=== PATIENT | female | born 1985 | race African-American/Black ===

== ENCOUNTER 2016-08-16 19:25 | Observation (INO) | payer MEDICAID, MEDICARE ==
[~2016-08-16] VITALS: Ht 157.5 cm; Wt 90.7 kg
[~2016-08-16 19:25] MED LIST: ALBUTEROL0.09 MG/A1 IH; FOLATE1 MG PO; OMEGA-3 FISH1200 MG PO; PRENATAL VITAMI1 T10 PO
[2016-08-16] MEDS ORDERED: cefTRIAXone 1,000 MG in LIDOCAINE 1% ED 2.1 ML IM SCH (21:25)
[2016-08-16] MEDS ORDERED: LIDOCAINE 1% 500 MG/50 ML VIAL INJ SCH (21:25)
[2016-08-16] MEDS ORDERED: cefTRIAXone 1,000 MG VIAL ONE (21:40)
[2016-08-16] MEDS ORDERED: LIDOCAINE 1% 50 ML ONE (21:41)
[2016-08-16] MEDS ORDERED: PRENATAL CAPLE1 EACH PO (23:00)
== END 2016-08-17 00:30 | disposition home or self-care (01) ==
LOC: MLD 19:25
PROVIDERS: ADMIT Obstetrics & Gynecology; ATTEND Obstetrics & Gynecology
DX: O36.8120 Decreased fetal movements, second trimester, not applicable or unspecified (principal); O26.892 Other specified pregnancy related conditions, second trimester; N89.8 Other specified noninflammatory disorders of vagina; R10.2 Pelvic and perineal pain; Z3A.23 23 weeks gestation of pregnancy
CPT/HCPCS: 76805; 81000; 96372; G0378; J0696; J2001

== ENCOUNTER 2019-03-06 22:57 | Emergency (ER) | payer MEDICAID ==
[~2019-03-06] VITALS: Ht 172.7 cm; Wt 93.0 kg
[~2019-03-06 22:57] MED LIST changes: +ALBU0.0939 IH; -ALBUTEROL0.09 MG/A1 IH; -FOLATE1 MG PO; -OMEGA-3 FISH1200 MG PO; +PREN-385 PO; -PRENATAL VITAMI1 T10 PO
[2019-03-06 23:07] VITALS: BP 141/83
--- NOTE | 2019-03-06 23:08 | NUR ---
TRIAGE COMPLETE. VSS. OKAY TO WAIT IN LOBBY FOR BED IN ED.
--- NOTE | 2019-03-07 00:24 | NUR ---
PATIENT LEFT WITHOUT BEING SEEN BY DR. FIGUEROA. PT CALLED X3. NO FURTHER CARE PROVIDED FOR PATIENT.
== END 2019-03-07 00:24 | disposition left against medical advice (07) ==
LOC: MED 22:57
DX: N89.8 Other specified noninflammatory disorders of vagina (principal); R10.2 Pelvic and perineal pain; Z53.21 Procedure and treatment not carried out due to patient leaving prior to being seen by health care provider

== ENCOUNTER 2019-03-07 04:50 | Emergency (ER) | payer MEDICAID ==
[~2019-03-07] VITALS: Ht 172.7 cm; Wt 95.3 kg
[2019-03-07 04:54] VITALS: BP 107/53
[2019-03-07 06:07] LABS: APPEARANCE,URINE SL CLOUDY (CLEAR); BILIRUBIN,URINE NEGATIVE (NEGATIVE); BLOOD, URINE NEGATIVE (NEGATIVE); COLOR,URINE YELLOW (YELLOW); LEUKOCYTE ESTERASE ,URINE TRACE (NEGATIVE); NITRITE, URINE NEGATIVE (NEGATIVE); UGLUCOSE NEGATIVE (NEGATIVE)
[2019-03-07 06:21] LABS: RBC,URINE 0-5 /HPF (0-5)
[2019-03-07 06:41] VITALS: BP 107/53
[2019-03-10 07:15] LABS: CHLAMYDIA TRACHOMATIS AMP DNA Negative (Negative)
== END 2019-03-07 06:41 | disposition home or self-care (01) ==
LOC: MED 04:50
DX: N39.0 Urinary tract infection, site not specified (principal); N76.0 Acute vaginitis; B96.89 Other specified bacterial agents as the cause of diseases classified elsewhere; J45.909 Unspecified asthma, uncomplicated; F17.210 Nicotine dependence, cigarettes, uncomplicated; Z98.890 Other specified postprocedural states; Z79.51 Long term (current) use of inhaled steroids; Z79.899 Other long term (current) drug therapy; Z88.0 Allergy status to penicillin; Z88.6 Allergy status to analgesic agent
CPT/HCPCS: 36415; 81001; 81025; 87070; 87086; 87205; 87210; 87491; 99283

== ENCOUNTER 2019-05-12 20:54 | Emergency (ER) | payer MEDICAID ==
[~2019-05-12] VITALS: Ht 170.2 cm; Wt 88.5 kg
[2019-05-12 21:05] VITALS: BP 124/74
== END 2019-05-12 22:17 | disposition left against medical advice (07) ==
LOC: MED 20:54
DX: R19.7 Diarrhea, unspecified (principal); R10.9 Unspecified abdominal pain; J45.909 Unspecified asthma, uncomplicated; Z88.0 Allergy status to penicillin; Z88.1 Allergy status to other antibiotic agents; Z88.6 Allergy status to analgesic agent
CPT/HCPCS: 81002; 81025; 99282

== ENCOUNTER 2019-05-12 22:20 | Emergency (ER) | payer MEDICAID ==
[~2019-05-12] VITALS: Ht 170.2 cm; Wt 88.9 kg
--- NOTE | 2019-05-12 22:25 | NUR ---
PT TAKEN TO CHAIR A
--- NOTE | 2019-05-12 22:39 | NUR ---
PT ELOPED PREVIOUSLY DURING NIGHT. PT WITH SAME CHIEF COMPLAINT.
[2019-05-12 22:40] VITALS: BP 129/77
--- NOTE | 2019-05-12 22:40 | NUR ---
33/F C/O HEADACHE X3 WEEKS, LOWER ABD TO MID ABD PAIN X1 WEEK. REPORTS DIARRHEA X1. PT AWAKE AND ALERT, SKIN NORMAL COLOR WARM AND DRY, RR EVEN AND UNLABORED. HX ASTHMA RX ALBUTEROL INH (RAN OUT)
--- NOTE | 2019-05-12 22:50 | NUR ---
PT IS AGITATED AND USET BECAUSE SHE WANTS TO COME IN AND OUT OF THE EMERGANCY DEPARTMENT WHEN EVER SHE WANTS. PT WAS INSTRUCTED NOT TO LEAVE THE ER. YEAST SUPERVISOR WAS CALLED AND SPOKE TO PT. YEAST SUPERVISOR CINDI LET PT KNOW SHE CAN NOT LEAVE THE ER. PT STATES SHE NEEDS FRESH AIR AND HAS TO TAKE WALKS OUTSIDE AND HAS TO GO TO HER CAR TO GET THINGS FROM IT. ERMD MADE AWARE. ER MD ASSESSED PT AND PT WAS ASSESSED AND REASSESSED BY TRIAGE NURSE AND PRIMARY NURSE. PT IS MANIPULATING WORDS AND STATED THAT WE DO NOT WANT TO SEE HER. STAFF LET HER KNOW THAT WE HAVE SEEN HER AND HAVE ASSESSED HER. PT LEFT ER AND IS SITTING IN CAR.
[2019-05-12 23:48] VITALS: BP 129/77
--- NOTE | 2019-05-12 23:49 | NUR ---
PT LOOKED FOR RADIOLOGY, PT ELOPED. PT WAS NOT IN LOBBY OR IN ER. ERMD MADE AWARE.
--- NOTE | 2019-05-12 23:54 | NUR ---
PATIENT ELOPED FROM FACILITY. DISCHARGE INSTRUCTIONS NOT GIVEN TO PATIENT. DR. LANDRY NOTIFIED. PT KNEW AND UNDERSTOOD WHEN EDUCATED BY AIRPLANE PILOT SUPERVISOR, CHARGE NURSE AND PRIMARY NURSE FOR LEAVING THE EMERGENCY DEPARTMENT. PT WAS NO WHERE TO BE FOUND.
--- NOTE | 2019-05-12 23:54 | NUR ---
PT WAS NOT IN LOBBY OR OUTSIDE THE ER FACILITY, PT ELOPED. ERMD MADE AWARE OF STATUS.
== END 2019-05-12 23:54 | disposition left against medical advice (07) ==
LOC: MED 22:20
DX: J45.909 Unspecified asthma, uncomplicated (principal); Z79.51 Long term (current) use of inhaled steroids; Z79.899 Other long term (current) drug therapy; Z88.6 Allergy status to analgesic agent; Z88.0 Allergy status to penicillin
CPT/HCPCS: 36415; 84702; 99281; 99283

== ENCOUNTER 2020-02-12 01:14 | Emergency (ER) | payer MEDICAID ==
[~2020-02-12] VITALS: Ht 172.7 cm; Wt 94.8 kg
[2020-02-12 01:27] VITALS: BP 127/57
--- NOTE | 2020-02-12 01:33 | NUR ---
PT TAKEN TO BED 3
--- NOTE | 2020-02-12 01:50 | NUR ---
Dr. Guzmán examining patient.
--- NOTE | 2020-02-12 01:55 | NUR ---
ua collected and dipped and preg test by andreina king
--- NOTE | 2020-02-12 01:55 | NUR ---
pt having lower abd pain radiating into lower back x 1 day with dysuria. c/o nausea but no vomiting or diarrhea. afebrile. last menstrual period 02/08/20. allergies - pcn, amox, ibuprofen no hx
--- NOTE | 2020-02-12 02:17 | NUR ---
Patient discharged with v/s stable. Written and verbal after care instructions given and explained. Patient alert, oriented and verbalized understanding of instructions. Ambulatory with steady gait. All questions addressed prior to discharge. ID band removed. Patient advised to follow up with PMD. Rx of cipro, pyridium, and zofran given. Patient educated on indication of medication including possible reaction and side effects. Opportunity to ask questions provided and answered.
[2020-02-12 02:18] VITALS: BP 127/57
== END 2020-02-12 02:17 | disposition home or self-care (01) ==
LOC: MED 01:14
DX: N39.0 Urinary tract infection, site not specified (principal); F17.210 Nicotine dependence, cigarettes, uncomplicated; J45.909 Unspecified asthma, uncomplicated; Z88.0 Allergy status to penicillin; Z88.1 Allergy status to other antibiotic agents; Z88.6 Allergy status to analgesic agent; Z98.890 Other specified postprocedural states; Z79.899 Other long term (current) drug therapy
CPT/HCPCS: 81002; 81025; 99283

== ENCOUNTER 2023-05-21 05:40 | Emergency (ER) | payer MEDICAID ==
[~2023-05-21] VITALS: Ht 172.7 cm; Wt 99.8 kg
[2023-05-21 05:48] VITALS: BP 115/77; PULSE 75; RESP 16; TEMP 97.5; O2SAT 100
[2023-05-21] MEDS ORDERED: HYDROcodone/APAP 5/325 MG 1 TAB TAB PO ONE (06:40)
[2023-05-21] MEDS ORDERED: KETOROLAC 30 MG/ML VIAL IM ONE (06:40)
[2023-05-21] MEDS ORDERED: cefTRIAXone 500 MG in LIDOCAINE MPF 1% 1 ML IM ONE (06:45)
[2023-05-21] MEDS ORDERED: AZITHROMYCIN 250 MG TAB PO ONE (06:45)
[2023-05-21] MEDS ORDERED: cefTRIAXone 500 MG VIAL ONE ×2 (07:03→08:57)
[2023-05-21] MEDS ORDERED: LIDOCAINE MPF 1% 5 ML ONE ×2 (07:04→09:00)
[2023-05-21 07:14] LABS: APPEARANCE,URINE CLEAR (CLEAR); BILIRUBIN,URINE NEGATIVE (NEGATIVE); BLOOD, URINE NEGATIVE (NEGATIVE); COLOR,URINE YELLOW (YELLOW); LEUKOCYTE ESTERASE ,URINE NEGATIVE (NEGATIVE); NITRITE, URINE NEGATIVE (NEGATIVE); PROTEIN,URINE NEGATIVE (NEGATIVE); UGLUCOSE NEGATIVE (NEGATIVE); UROBILINOGEN,URINE 0.2 EU/dL (0.2 - 1)
[2023-05-21 07:33] VITALS: O2SAT 100
[2023-05-21 07:43] LABS: BASOPHILS # (AUTO) 0.1 K/uL (0.00-0.22); BASOPHILS % (AUTO) 1.4 % (0.0-2.0); EOSINOPHILS # (AUTO) 0.5 K/uL (0-0.4); EOSINOPHILS % (AUTO) 8.1 % (0.0-4.0); HEMATOCRIT 33.4 % (36-48); HEMOGLOBIN 11.2 g/dL (12.0-16.0); LYMPHOCYTES # (AUTO) 1.4 K/uL (2.5-16.5); LYMPHOCYTES % (AUTO) 25.4 % (20.5-51.1); MEAN CORPUSCULAR HEMOGLOBIN 30 pg (27-31); MEAN CORPUSCULAR HGB CONC 34 g/dL (33-37); MEAN CORPUSCULAR VOLUME 90.8 fL (80-94); MONOCYTES # (AUTO) 0.6 K/uL (0.8-1.0); MONOCYTES % (AUTO) 9.9 % (1.7-9.3); NEUTROPHILS # (AUTO) 3.1 K/uL (1.8-7.7); NEUTROPHILS % (AUTO) 55.2 % (42.2-75.2); PLATELET COUNT (AUTO) 267 K/uL (140-450); RED BLOOD CELL COUNT(AUTO) 3.68 MIL/uL (4.20-5.40); RED CELL DISTRIBUTION WIDTH 14.8 % (11.6-13.7); WHITE BLOOD COUNT (AUTO) 5.6 K/uL (4.8-10.8)
[2023-05-21 07:58] LABS: ALBUMIN 3.2 g/dL (3.4-5.0); ANION GAP 11.1 (8-16); CALCIUM 7.9 mg/dL (8.5-10.1); CREATININE 0.7 mg/dL (0.6-1.3); POTASSIUM 4.1 mmol/L (3.5-5.1); TOTAL BILIRUBIN 0.3 mg/dL (0.0-1.0)
[2023-05-21] MEDS ORDERED: FLUC150T PO (08:35)
[2023-05-21] MEDS ORDERED: TRAM50TA3 PO (08:35)
[2023-05-21] MEDS ORDERED: FLUCONAZOLE 100 MG TAB PO ONE (08:35)
[2023-05-21] MEDS ORDERED: ACET-10509 PO (08:35)
[2023-05-21] MEDS ORDERED: FERR325E14 PO (08:41)
== END 2023-05-21 09:25 | disposition home or self-care (01) ==
LOC: MED 05:40
DX: N76.0 Acute vaginitis (principal); J45.909 Unspecified asthma, uncomplicated; Z88.1 Allergy status to other antibiotic agents; Z79.899 Other long term (current) drug therapy; Z88.0 Allergy status to penicillin; Z88.5 Allergy status to narcotic agent
CPT/HCPCS: 36415; 76856; 80053; 81003; 81025; 85025; 87210; 87491; 93976; 99284; J1885; Q0092; J0696; J2001